=== PATIENT | male | born 1985 | race African-American/Black ===

== ENCOUNTER 2016-12-09 13:43 | Emergency (ER) | payer OTHER ==
[2016-12-09 14:11] VITALS: BP 134/77
[2016-12-09 16:10] LABS: NEGATIVE OBC MONO NEG; POSITIVE OBC MONO POS
[2016-12-09 16:25] LABS: OBC FLU VALID
[2016-12-09] MEDS ORDERED: IBUP-1007 PO (16:40)
--- NOTE | 2016-12-09 16:41 | PHYS DOC ---
Past Medical History Past Medical History: Diabetes-Type II, Hypertension Past Surgical History: No Surgical History Alcohol Use: None Drug Use: None Adult General Chief Complaint Chief Complaint: FEVER HPI HPI Patient is a 31 year old male who presents with complaint of fever, sore throat , and body aches. Patient states his symptoms started yesterday. Patient has had continued worsening symptoms since onset. Patient had a fever of 103F yesterday. Patient was treated with Tylenol but time which helped a fever. Patient last took Tylenol approximately one hour prior to arrival in the emergency department. Patient has had associated cough. Denies shortness of breath, nausea, or vomiting. Patient does admit to generalized weakness and body aches. Patient denies any significant past medical history. Review of Systems Review of Systems Constitutional: Fever, chills, bodyaches [] Eyes: Denies change in visual acuity, redness, or eye pain [] HENT: Nasal congestion, sore throat [] Respiratory: Cough, denies shortness of breath [] Cardiovascular: Denies chest pain or edema [] GI: Denies abdominal pain, nausea, vomiting, bloody stools or diarrhea [] : Denies dysuria or hematuria [] Musculoskeletal: Myalgias [] Integument: Denies rash or skin lesions [] Neurologic: Denies headache, focal weakness or sensory changes [] Allergies Allergies Allergies Coded Allergies Type Severity Reaction Last Updated Verified No Known Drug Allergies 12/09/16 No Physical Exam Physical Exam Constitutional: Alert, afebrile, no acute distress. [] HENT: Normocephalic, atraumatic, bilateral external ears normal, oropharynx erythematous, no oral exudates, nose normal. [] Eyes: PERRLA, EOMI, conjunctiva normal, no discharge. [] Neck: Normal range of motion, no tenderness, supple, no stridor. [] Cardiovascular:Heart rate regular rhythm, no murmur [] Lungs & Thorax: Bilateral breath sounds clear to auscultation [] Abdomen: Bowel sounds normal, soft, no tenderness, no masses, no pulsatile masses. [] Skin: Warm, dry, no erythema, no rash. [] Back: No tenderness, no CVA tenderness. [] Extremities: No tenderness, no cyanosis, no clubbing, ROM intact, no edema. [] Neurologic: Alert and oriented X 3, normal motor function, normal sensory function, no focal deficits noted. [] Current Patient Data Vital Signs Vital Signs Date Time Temp Pulse Resp B/P Pulse Ox O2 Delivery O2 Flow Rate FiO2 12/09/16 14:11 99.2 96 13 97 Room Air 99.2 Lab Values Laboratory Tests Test 12/09/16 15:57 Heterophil Agglutinins Negative (NEGATIVE) Influenza Type A Antigen Negative (NEGATIVE) Influenza Type B Antigen Negative (NEGATIVE) EKG EKG Not performed [] Radiology/Procedures Radiology/Procedures Not performed [] Course & Med Decision Making Course & Med Decision Making Pertinent Labs and Imaging studies reviewed. (See chart for details) The patient's strep, influenza, and mononucleosis tests were negative and the emergency department. The patient's symptoms appear consistent with a febrile viral illness. Patient was given prescription for prescription strength ibuprofen. Advised to continue on Tylenol and ibuprofen for treatment of fever and bodyaches. Advised continued oral hydration and close follow-up in 2 days with primary doctor for reevaluation. Advised return emergency department for any worsening symptoms. Patient voiced understanding and in agreement with treatment plan. Dragon Disclaimer Dragon Disclaimer This electronic medical record was generated, in whole or in part, using a voice recognition dictation system. Departure Departure Impression: Primary Impression: Acute febrile illness Disposition: HOME, SELF-CARE Condition: STABLE Referrals: QUINCY SELLERS MD (PCP) Patient Instructions: Fever, Sore Throat Additional Instructions: Follow-up in one to 2 days with your primary doctor. Return to emergency department for any worsening symptoms. Scripts Ibuprofen 600 Mg [id number] Mg PO Q6HRS PRN INFLAMMATION #30 TAB Prov:VERONIKA KERN MD 12/09/16 VERONIKA KERN MD Dec 09, 2016 16:40
[2016-12-10 09:07] LABS: NEGATIVE OBC STREP NEG; POSITIVE OBC STREP POS
== END 2016-12-09 16:56 | disposition home or self-care (01) ==
LOC: ER 13:43
DX: R50.9 Fever, unspecified (principal); J02.9 Acute pharyngitis, unspecified; E11.9 Type 2 diabetes mellitus without complications; I10 Essential (primary) hypertension
CPT/HCPCS: 86308; 87070; 87804; 87880; 99284

== ENCOUNTER 2018-02-27 14:44 | Emergency (ER) | payer OTHER ==
[2018-02-27] MEDS: IV NORMAL SALINE 1000ML BAG 1,000 ML IV (15:27)
[2018-02-27] MEDS: KETOROLAC 30 MG/ML INJ. IV (15:31)
[2018-02-27] MEDS: diphenhydrAMINE 50 MG/ML VIAL IVP (15:32)
[2018-02-27] MEDS: METOCLOPRAMIDE HCL 10 MG/2 ML VIAL. IV (15:34)
== END 2018-02-27 16:31 | disposition home or self-care (01) ==
LOC: ER 14:44
DX: G43.909 Migraine, unspecified, not intractable, without status migrainosus (principal); E78.00 Pure hypercholesterolemia, unspecified; E11.9 Type 2 diabetes mellitus without complications; I10 Essential (primary) hypertension
CPT/HCPCS: 96374; 96375; 99284-25; J1200; J1885; J2765; J7030